=== PATIENT | male | born 2000 | race Caucasian/White ===

== ENCOUNTER 2023-01-26 14:09 | Emergency (ER) | payer MEDICAID, SELFPAY ==
[2023-01-26 14:56] VITALS: BP 142/81; PULSE 92; RESP 18; TEMP 36.4; O2SAT 100; BMI 23.8
--- NOTE | 2023-01-26 15:19 | CTR_ITS ---
PROCEDURE INFORMATION: Exam: CT Abdomen And Pelvis With Contrast Exam date and time: 01/26/2023 3:37 PM Age: 22 years old Clinical indication: Abdominal pain; Additional info: Abdominal pain, trauma, black stools TECHNIQUE: Imaging protocol: Computed tomography of the abdomen and pelvis with contrast. Axial, coronal and sagittal reformatted images were created and reviewed. Radiation optimization: All CT scans at this facility use at least one of these dose optimization techniques: automated exposure control; mA and/or kV adjustment per patient size (includes targeted exams where dose is matched to clinical indication); or iterative reconstruction. Contrast material: OMNI 350; Contrast volume: 100 ml; Contrast route: INTRAVENOUS (IV); REPORTING DATA: Count of CT and Cardiac NM exams in prior 12 months: This patient has received 0 known CTs and 0 known cardiac nuclear medicine studies in the 12 months prior to the current study. COMPARISON: No relevant prior studies available. RADIATION DOSE METRICS: Total DLP (mGy-cm): 387.23 FINDINGS: Liver: Unremarkable. Gallbladder and bile ducts: No radiodense gallstones. No biliary ductal dilatation. Pancreas: Unremarkable. Spleen: Unremarkable. Adrenal glands: Normal. No mass. Kidneys and ureters: 3 mm low-density left renal lesion, too small to characterize. No radiodense calculi. No hydronephrosis. Stomach and bowel: No bowel wall thickening. No obstruction. No pneumatosis. Appendix: Normal. Intraperitoneal space: No free fluid. No organized fluid collection. No free air. Vasculature: Unremarkable. No aneurysm. Lymph nodes: Small mesenteric lymph nodes, nonspecific in appearance. No pathologically enlarged lymph nodes. Urinary bladder: Unremarkable as visualized. Reproductive: Unremarkable. Bones/joints: No acute osseous abnormality. Mild degenerative changes. Soft tissues: Unremarkable. CT/CT abdomen pelvis w con* [id number]: 1[address] No CT evidence of acute intra-abdominal or pelvic pathology. 2. Additional findings, as above. COMMENTS: Consistent with the [employer]'s Incidental Findings Committee white paper (J Am Rachel Radiol 2018): Any incidental renal lesion less than 1 cm or classified as too small to characterize, or any incidental cystic renal lesion characterized as simple-appearing, is likely benign. No follow-up imaging is recommended for these lesions per consensus recommendations based on imaging criteria.
--- NOTE | 2023-01-26 15:21 | ED_ITS ---
HPI - Abdominal Pain General: Chief Complaint: Abdominal Pain Stated Complaint: blood in stool Time Seen by Provider: 01/26/23 15:04 Source: patient Mode of arrival: ambulatory Limitations: no limitations History of Present Illness: Patient is a 22-year-old male who presents to ED today with a complaint of abdominal trauma and presumed bloody stools. Patient states earlier today while at rehab he was struck in the upper abdomen by a football. He states he immediately had pain that has progressed throughout the day and is now had approximately 6 episodes of black loose stools that he describes as coffee grounds. Patient feels nauseous but he has not had any episodes of vomiting. He states he feels anxious and his hands and feet are tingling. MD elicited complaint: abdominal pain Pertinent past history: gastrointestinal bleeding (was told he had a gastric ulcer 6-8 mo ago) Onset (ago): hour(s) Pain Consistency: constant Location: Diffuse Severity: severe Quality: aching and sharp Radiation: none Migration to: no migration Exacerbating factors: nothing Relieving factors: nothing Context: recent injury Associated Symptoms: Reports melena and nausea; Denies chills, dysuria, fever(s), hematuria, hematemesis and vomiting Review of Systems Const: Denies: fever(s), chills, body aches, fatigue or malaise Card: Denies: chest pain Resp: Denies: dyspnea GI: Reports: abdominal pain, nausea and melena; Denies: vomiting, hematemesis, rectal pain, rectal swelling or rectal itching : Denies: flank pain, difficulty urinating, dysuria, hematuria or genital pain Musc: Denies: neck pain, back pain, extremity pain or joint pain Skin/Breast: Denies: rash Neuro: Denies: headache(s), numbness in extremities, weakness in extremities or sensory changes PFS ED PFSH: Medical History Active substance abuse Drug-induced mood disorder Other reactions to severe stress Physical Exam Const: COMMON NORMALS: average body habitus, patient oriented x3, no limitations, healthy appearing, alert and well nourished GENERAL APPEARANCE: cooperative, in distress (appears uncomfortable) and anxious ORIENTATION/CONSCIOUSNESS: Yes awake, Yes oriented to person, Yes oriented to place and Yes oriented to time HENMT: COMMON NORMALS: normocephalic and atraumatic HEAD & SCALP: normal to inspection, normocephalic and atraumatic Chest: COMMONS NORMALS: normal inspection of the chest and normal palpation of entire chest wall Resp: COMMON NORMALS: normal respiratory effort and clear to auscultation bilaterally AUSCULTATION: clear to auscultation bilaterally Cardio: COMMON NORMALS: regular rate and regular rhythm RATE: regular rate RHYTHM: regular rhythm GI: COMMON NORMALS: Normal to inspection, nondistended, normoactive bowel sounds present, Soft to palpation, No hepatosplenomegaly present and no masses INSPECTION: Yes normal to inspection AUSCULTATION: Yes normoactive bowel sounds PALPATION: Yes Soft to palpation, Yes Tenderness to palpation present (GI) (diffusely with guarding), Yes Guarding due to palpation present (GI), No Rigid due to palpation and Yes No hepatosplenomegaly present : COMMON NORMALS: Yes no CVA tenderness BLADDER/KIDNEY EXAM: Yes no CVA tenderness Back/Pelvis: COMMON NORMALS: no CVA tenderness, thoracic and lumbar spine normal to inspection, no thoracic nor lumbar tenderness and thoraco-lumbar ROM normal Extremity: COMMON NORMALS: normal to inspection GENERAL: Yes normal exam except as noted Neuro: STEVAN COMA SCALE: document GCS findings [place] coma scale eye opening: Spontaneous Stevan coma scale verbal response: Orientated Stevan coma scale motor response: Obey commands [place] coma scale total score: 15 COMMON NORMALS: patient oriented x3 SENSORIUM/ORIENTATION: Yes alert, Yes oriented to person, Yes oriented to place and Yes oriented to time Skin: COMMON NORMALS: no rashes or lesions noted GENERAL SKIN EXAM: no rashes or lesions noted Procedures Stool Hemoccult Procedural Steps Taken: stool placed in appropriate test area, developer placed on stool and control areas and controls appropriately positive and negative Hemoccult result: negative Course Vital Signs: Vital signs: Vital Signs Temperature 97.6 F 01/26/23 14:56 Pulse Rate 92 01/26/23 14:56 Respiratory Rate 18 01/26/23 14:56 Blood Pressure 142/81 01/26/23 14:56 Pulse Oximetry 100 01/26/23 14:56 Oxygen Delivery Me thod Room Air 01/26/23 14:56 MDM - Abdominal Pain Medical Decision Making Patient's vital signs are normal. Blood work is unremarkable. CT imaging showing no acute intra-abdominal or pelvic pathology. Hemoccult is negative. Patient is stable for discharge. Recommend follow-up with primary care provider in the next week or so for re-evaluation especially if symptoms persist. Lab Data 01/26/23 15:28 01/26/23 15:28 Labs/Radiology: Radiology Impressions Abdomen/Pelvis CT 01/26/23 15:[address]: 1[address] evidence of acute intra-abdominal or pelvic pathology. 2. Additional findings, as above. COMMENTS: Consistent with the [employer]'s Incidental Findings Committee white paper (J Am Rachel Radiol 2018): Any incidental renal lesion less than 1 cm or classified as too small to characterize, or any incidental cystic renal lesion characterized as simple-appearing, is likely benign. No follow-up imaging is recommended for these lesions per consensus recommendations based on imaging criteria. Laboratory Results WBC 8.0 10^3/uL (4.5-13.0) 01/26/23 15:28 RBC 4.87 10^6/uL (4.1-5.3) 01/26/23 15:28 Hgb 15.0 g/dL (11.7-16.6) 01/26/23 15:28 Hct 45.2 % (42.0-52.0) 01/26/23 15:28 MCV 92.8 fl (80-94) 01/26/23 15:28 MCH 30.8 pg (28.0-34.0) 01/26/23 15:28 MCHC 33.2 g/dL (30.0-36.0) 01/26/23 15:28 RDW 12.2 % (12.1-15.1) 01/26/23 15:28 Plt Count 311 10^3/cmm (130-400) 01/26/23 15:28 MPV 9.9 fL (7.4-10.4) 01/26/23 15:28 Neut % (Auto) 81.9 % 01/26/23 15:28 Lymph % (Auto) 12.0 % 01/26/23 15:28 [place] % (Auto) 4.9 % 01/26/23 15:28 Eos % (Auto) 0.2 % 01/26/23 15:28 Baso % (Auto) 0.5 % 01/26/23 15:28 Neut # (Auto) 6.56 10^3/uL (1.8-8.0) 01/26/23 15:28 Lymph # (Auto) 1.0 10^3/uL (1.5-6.5) L 01/26/23 15:28 [place] # (Auto) 0.4 10^3/uL (0.2-0.9) 01/26/23 15:28 Eos # (Auto) 0.0 10^3/uL (0.0-0.8) 01/26/23 15:28 Baso # (Auto) 0.0 10^3/uL (0.0-0.1) 01/26/23 15:28 Nucleated RBC % (auto) 0 % 01/26/23 15:28 Nucleated RBCs # 0.0 /100WBC 01/26/23 15:28 Sodium 142 mmol/L (136-145) 01/26/23 15:28 Potassium 4.0 mmol/L (3.5-5.1) 01/26/23 15:28 Chloride 102 mmol/L (98-107) 01/26/23 15:28 Carbon Dioxide 26 mmol/L (22-29) 01/26/23 15:28 Anion Gap 18.0 (5-19) 01/26/23 15:28 BUN 9 mg/dL (6-20) 01/26/23 15:28 Creatinine 0.9 mg/dL (0.7-1.2) 01/26/23 15:28 GFR Calculation 107.6 mL/min (90-130) 01/26/23 15:28 Glucose 91 mg/dL (65-115) 01/26/23 15:28 Calculated Osmolality 292 mOsm/kg (285-295) 01/26/23 15:28 Calcium 9.9 mg/dL (8.5-10.5) 01/26/23 15:28 Total Bilirubin 0.6 mg/dL (0.15-1.2) 01/26/23 15:28 AST 34 U/L (0-40) 01/26/23 15:28 ALT 20 U/L (0-41) 01/26/23 15:28 Alkaline Phosphatase 59 U/L (40-130) 01/26/23 15:28 Total Protein 8.6 g/dL (6.6-8.7) 01/26/23 15:28 Albumin 5.5 g/dL (3.5-5.2) H 01/26/23 15:28 Globulin 3.1 g/dL (1.3-4.6) 01/26/23 15:28 Lipase 35 U/L (13-60) 01/26/23 15:28 Discharge Plan Discharge Patient Disposition: Home Clinical Impression: Abdominal contusion Qualifiers: Encounter type: initial encounter Qualified Code(s): S30.1XXA - Contusion of abdominal wall, initial encounter Diarrhea Qualifiers: Diarrhea type: unspecified type Qualified Code(s): R19.7 - Diarrhea, unspecified Condition: Stable Prescriptions: No Action quetiapine 25 mg tablet 25 mg PO .qhs 30 Days Qty: 30 3RF Discharge Orders: Discharge ED (Routine); Ordered 01/26/23 Ordered By: Vannesa Canas Activity Restrictions/Additional Instructions: Please follow-up with your primary care provider within the next week or so if symptoms persist. You may return to the emergency department for severe or worsening abdominal pains, repetitive episodes of vomiting or diarrhea, fevers greater than 100.4, generally feeling worse or unwell, or any other concerns you may have. Coding Level of Care Code ED [employer] Tender for Francine Farah
[2023-01-26 15:52] LABS: Basophils % 0.5 %; Eosinophils % 0.2 %; Hematocrit 45.2 % (42.0-52.0); Mean Corpuscular HGB Conc 33.2 g/dL (30.0-36.0); Mean Corpuscular Hemoglobin 30.8 pg (28.0-34.0); Mean Corpuscular Volume 92.8 fl (80-94); Mean Platelet Volume 9.9 fL (7.4-10.4); Monocytes # 0.4 10^3/uL (0.2-0.9); Monocytes % 4.9 %; Neutrophils # 6.56 10^3/uL (1.8-8.0); Neutrophils % 81.9 %; Nucleated Red Blood Cells % 0 %; Platelet Count 311 10^3/cmm (130-400); Red Blood Count 4.87 10^6/uL (4.1-5.3); Red Cell Distribution Width 12.2 % (12.1-15.1)
[2023-01-26 16:25] LABS: Alanine Aminotransferase 20 U/L (0-41); Albumin Level 5.5 g/dL (3.5-5.2); Alkaline Phosphatase 59 U/L (40-130); Aspartate Amino Transferase 34 U/L (0-40); Blood Urea Nitrogen 9 mg/dL (6-20); Calcium 9.9 mg/dL (8.5-10.5); Carbon Dioxide 26 mmol/L (22-29); Chloride 102 mmol/L (98-107); Globulin 3.1 g/dL (1.3-4.6); Glomerular Filtration Rate 107.6 mL/min (90-130); Glucose 91 mg/dL (65-115); Lipase 35 U/L (13-60); Osmolality Calculated 292 mOsm/kg (285-295); Sodium 142 mmol/L (136-145); Total Bilirubin 0.6 mg/dL (0.15-1.2); Total Protein 8.6 g/dL (6.6-8.7)
--- NOTE | 2023-01-29 12:16 | DCPLANNER ---
epic manager called patient due to no primary care physician - no answer at this time.
== END 2023-01-26 16:55 | disposition home or self-care (01) ==
PROVIDERS: Emergency Provider Physician Assistant
DX: K92.1 Melena (principal); S30.1XXA Contusion of abdominal wall, initial encounter; W21.01XA Struck by football, initial encounter
CPT/HCPCS: 36415; 74177; 80053; 83690; 85025; 99284; Q9967